=== PATIENT | female | born 1950 | race Caucasian/White ===

== ENCOUNTER → 2020-12-29 | Day surgery (SDC) | payer MEDICARE, OTHER ==
[~2020-12-29] VITALS: Ht 170.2 cm; Wt 79.4 kg
[~2020-12-29] MED LIST: COLLAGEN PLUS1 EACH PO; DICLOFENAC SODI75 MG PO; MULTI FOR HER1 EACH PO; PRINIVIL10 MG PO; REQUIP0.25 MG PO; VITAMIN D31250 MCG PO; ZYRTEC10 MG PO
[2020-12-29 08:00] LABS: HCT 39.2 % (37.0-47.0); HGB 12.9 g/dl (12.5-16.0); MCH 29.3 pg (25.0-31.0); MCHC 32.9 g/dL (32.0-36.0); MCV 89.1 fL (78.0-100.0); MPV 10.1 fL (6.0-9.5); RBC 4.4 M/uL (4.20-5.40); RDW 13.5 % (11.5-14.0); WBC 8.8 K/uL (4.0-10.5)
[2020-12-29 09:16] LABS: ALBUMIN 4.1 g/dL (3.4-5.0); BILIRUBIN - TOTAL 0.5 mg/dL (0.2-1.0); BUN/CREAT RATIO (CALC) 18.8 RATIO; CREATININE 0.64 mg/dL (0.51-0.95); GLOBULIN (CALCULATION) 3.8 g/dL; POTASSIUM 3.9 mmol/L (3.5-5.1); TOTAL PROTEIN 7.9 g/dL (6.4-8.2)
== END | disposition home or self-care (01) ==
LOC: FAS 07:08
PROVIDERS: Surgery
DX: Z12.11 Encounter for screening for malignant neoplasm of colon (principal); M19.90 Unspecified osteoarthritis, unspecified site; I10 Essential (primary) hypertension; G25.81 Restless legs syndrome; Z98.890 Other specified postprocedural states; Z88.5 Allergy status to narcotic agent; Z79.899 Other long term (current) drug therapy
CPT/HCPCS: 36415; 80053; J1610; J2250; J7120